=== PATIENT | female | born 1975 | race Caucasian/White ===

== ENCOUNTER 2018-04-26 17:48 | Emergency (ER) | payer OTHER ==
[~2018-04-26] VITALS: Ht 172.7 cm; Wt 182.4 kg
[2018-04-26] MEDS ORDERED: IV NORMAL SALINE 1,000ML 1,000 ML IV SCH (18:02)
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
[2018-04-26 18:46] LABS: BASO # 0.1 x10^3/uL (0.0-0.2); BASO % 1 % (0-3); EOS # 0.5 x10^3/uL (0.0-0.7); EOS % 4 % (0-3); HEMATOCRIT 33.3 % (36.0-47.0); HEMOGLOBIN 11.2 g/dL (12.0-15.5); LYMPH # 3.2 x10^3/uL (1.0-4.8); LYMPH % 23 % (24-48); MEAN CORPUSCULAR HEMOGLOBIN 29 pg (25-35); MEAN CORPUSCULAR HGB CONC 34 g/dL (31-37); MEAN CORPUSCULAR VOLUME 87 fL (79-100); MONO # 0.9 x10^3/uL (0.0-1.1); MONO % 7 % (0-9); NEUT % 65 % (31-73); PLATELET COUNT 325 x10^3/uL (140-400); RED BLOOD COUNT 3.84 x10^6/uL (3.50-5.40); RED CELL DISTRIBUTION WIDTH 14.1 % (11.5-14.5); WHITE BLOOD COUNT 13.7 x10^3/uL (4.0-11.0)
[2018-04-26 18:58] LABS: ALBUMIN 3.4 g/dL (3.4-5.0); ALBUMIN/GLOBULIN RATIO 0.9 (1.0-1.7); CALCIUM 9.2 mg/dL (8.5-10.1); CREATININE 1.1 mg/dL (0.6-1.0); GFR 54.7; TOTAL BILIRUBIN 0.3 mg/dL (0.2-1.0); TOTAL PROTEIN 7.3 g/dL (6.4-8.2)
[2018-04-26 18:59] LABS: POTASSIUM 2.8 mmol/L (3.5-5.1)
[2018-04-26] MEDS ORDERED: POTASSIUM CL 40MEQ IN 0.9%NACL 1,000 ML IV ONE (19:00)
[2018-04-26] MEDS ORDERED: KETOROLAC 30 MG/ML VIAL. IV ONE (19:30)
[2018-04-26] MEDS ORDERED: POTASSIUM CHLORIDE 20 MEQ TABLET.ER. PO ONE (19:30)
[2018-04-26] MEDS ORDERED: METOCLOPRAMIDE HCL 10 MG/2 ML VIAL. IV ONE (19:30)
[2018-04-26] MEDS ORDERED: diphenhydrAMINE 50 MG/ML VIAL IVP ONE (19:30)
--- NOTE | 2018-04-26 19:38 | RAD ---
CT Head W/O Contrast: History: Headache, dizziness, blurry vision. Hx migraines Comparison: none Axial images were obtained without contrast. The bob and white matter appears normal and symmetrical for the patients age. There is no mass effect, extraaxial fluid collections or hydrocephalus. There is no gross bleed. There is no focal loss of bob-white matter distinction to suggest acute ischemia, i.e. stroke. Impression: No acute findings. PQRS Compliance Statement: One or more of the following individualized dose reduction techniques were utilized for this examination: 1. Automated exposure control 2. Adjustment of the mA and/or kV according to patient size 3. Use of iterative reconstruction technique Electronically signed by: Kevin Carlisle III, MD (04/26/2018 7:36 PM) [facility]
[2018-04-26 22:20] VITALS: BP 115/64
== END 2018-04-26 22:58 | disposition home or self-care (01) ==
LOC: ER 17:48
DX: R51 Headache (principal); R42 Dizziness and giddiness; H53.8 Other visual disturbances; E11.9 Type 2 diabetes mellitus without complications; I10 Essential (primary) hypertension
CPT/HCPCS: 36415; 70450; 80053; 85025; 96361; 96365; 96366; 96375; 99285; J1200; J1885; J2765; J7030

== ENCOUNTER → 2019-05-13 | Outpatient (CLI) | payer OTHER ==
--- NOTE | 2019-05-13 15:08 | RAD ---
Indication: Right breast pain TECHNIQUE: Limited right breast ultrasound in the area of pain. COMPARISON: Same day diagnostic mammogram FINDINGS: Skin is normal in thickness. No solid or cystic lesion seen in the indicated region of pain. Ridge of dense breast tissue is seen in the region of palpable abnormality. IMPRESSION: No sonographic abnormality. BI-RADS 2: Benign finding. Limited ultrasound if symptoms worsen. Electronically signed by: Steve Mukherjee DO (05/13/2019 3:05 PM) [facility]
--- NOTE | 2019-05-13 15:33 | RAD ---
DATE: 05/13/2019. EXAM: DIGITAL DIAGNOSTIC BILATERAL HISTORY: Right breast pain. COMPARISON: None This study was interpreted with the benefit of Computerized Aided Detection (CAD). FINDINGS: Breast Density: SCATTERED The breast parenchyma shows scattered fibroglandular densities. Breast parenchyma level B. No suspicious calcifications, spiculated mass or area of architectural distortion. IMPRESSION: No abnormality. BI-RADS CATEGORY: 2 BENIGN FINDING(S) RECOMMENDED FOLLOW-UP: 12M 12 MONTH FOLLOW-UP PQRS compliance statement: Patient information was entered into a reminder system with a target due date for the next mammogram. Mammography is a sensitive method for finding small breast cancers, but it does not detect them all and is not a substitute for careful clinical examination. A negative mammogram does not negate a clinically suspicious finding and should not result in delay in biopsying a clinically suspicious abnormality. "Our facility is accredited by the [employer] Mammography Program."
== END | disposition home or self-care (01) ==
LOC: MAMMO 13:39
PROVIDERS: ATTEND Physician Assistant
DX: N64.4 Mastodynia (principal); N64.89 Other specified disorders of breast
CPT/HCPCS: 76641; 77066

== ENCOUNTER → 2019-06-19 | Outpatient (CLI) | payer OTHER ==
--- NOTE | 2019-06-19 07:52 | RAD ---
Indication: Left foot and ankle pain TECHNIQUE: 2 views of the left foot and 2 views of the left ankle COMPARISON: None FINDINGS: Ankle: No acute fracture or dislocation. Ankle mortise is intact. Moderate ankle swelling noted. Foot: No acute fracture or dislocation. Minimal midfoot ulcer arthritis. Mild foot swelling. IMPRESSION: As above. Electronically signed by: Steve Mukherjee DO (06/19/2019 7:49 AM) [facility]
--- NOTE | 2019-06-19 07:52 | RAD ---
Indication: Left foot and ankle pain TECHNIQUE: 2 views of the left foot and 2 views of the left ankle COMPARISON: None FINDINGS: Ankle: No acute fracture or dislocation. Ankle mortise is intact. Moderate ankle swelling noted. Foot: No acute fracture or dislocation. Minimal midfoot ulcer arthritis. Mild foot swelling. IMPRESSION: As above. Electronically signed by: Steve Mukherjee DO (06/19/2019 7:49 AM) [facility]
== END | disposition home or self-care (01) ==
LOC: PMG 07:28
PROVIDERS: ATTEND Physician Assistant
DX: L97.429 Non-pressure chronic ulcer of left heel and midfoot with unspecified severity (principal); M19.072 Primary osteoarthritis, left ankle and foot; M79.89 Other specified soft tissue disorders; M25.472 Effusion, left ankle
CPT/HCPCS: 73600; 73620